=== PATIENT | female | born 1990 | race Two or more races ===

== ENCOUNTER 2022-03-11 16:51 | Emergency (ER) | payer OTHER ==
[~2022-03-11] VITALS: Ht 167.6 cm; Wt 81.8 kg
[2022-03-11] MEDS ORDERED: EPINEPHrine HCL 1 MG/1 ML AMP SC ONE (17:45)
[2022-03-11] MEDS ORDERED: PRED20TA2 PO (17:49)
[2022-03-11] MEDS ORDERED: PROM1SOL4 PO (17:59)
[2022-03-11 18:08] VITALS: BP 115/55
== END 2022-03-11 18:12 | disposition home or self-care (01) ==
LOC: ER 16:51
DX: L42 Pityriasis rosea (principal); R05.9 Cough, unspecified; Z79.899 Other long term (current) drug therapy
CPT/HCPCS: 96372; 99283; J0171